=== PATIENT | male | born 1960 | race Caucasian/White ===

== ENCOUNTER 2016-05-13 08:15 | Emergency (ER) | payer OTHER ==
[~2016-05-13] VITALS: Ht 185.4 cm; Wt 98.0 kg
[2016-05-13 08:20] VITALS: TEMP 37.3; Ht 185.4 cm; Wt 98.0 kg
[2016-05-13] MEDS ORDERED: LOSA1TAB PO (08:34)
--- NOTE | 2016-05-13 08:57 | DIAGNOSTIC IMAGING REPORT ---
RIGHT ANKLE 3 VIEWS HISTORY: Right ankle pain. COMPARISON: None. FINDINGS: There is no fracture or dislocation. Diffuse soft tissue swelling. Plantar heel spur. No radiopaque foreign bodies. IMPRESSION: No fractures. Electronically signed by: Atul Rubio M.D. 05/13/2016 8:55 AM Dictated Date/Time: 05/13/2016 8:54 AM
[2016-05-13 09:16] VITALS: BP 153/89; PULSE 76; O2SAT 97
--- NOTE | 2016-05-14 10:19 | EMERGENCY ROOM VISIT NOTE ---
ED Visit Note First contact with patient: 08:21 CHIEF COMPLAINT: Right ankle pain. HISTORY OF PRESENT ILLNESS: Mr. Fuentes is a 56-year old white male who is brought via wheelchair into the ED complaining of right lateral ankle pain. He reports 4 days ago he rolled his ankle when he was carrying trash at work. He reports initially he had some mild pain but over the last 4 days it became severe and for the last 2 days she has been having difficulty walking and sleeping because of the pain He is currently complaining of constant throbbing pain over the lateral aspect of the right ankle around the malleolus. He rates the pain a 10/10. Pain is radiating to the lower portions of the distal fibula. Pain increases with ambulation, dorsiflexion, inversion and palpation. He has not identified any alleviating factors related to the pain. He has been using intermittent ibuprofen and ice without relief of his discomfort. Associated with the pain is mild paresthesias to the foot. REVIEW OF SYSTEMS: As noted above in History of Present Illness. PAST MEDICAL HISTORY: Hypertension, status post unspecified knee surgery. CURRENT MEDICATIONS: ALLERGIES TO MEDICATIONS: Patient denies. SOCIAL HISTORY: Patient is currently employed; he feels safe in his home environment; he denies tobacco and alcohol use. PHYSICAL EXAM: Vital Signs: Date Time Temp Pulse Resp B/P Pulse Ox O2 Delivery O2 Flow Rate FiO2 05/13/16 09:16 76 16 153/89 97 05/13/16 08:20 37.3 80 16 155/97 95 Room Air General: 56 year old male in mild/moderate distress due to pain, nontoxic- appearing, afebrile and hemodynamically stable. Neurological: Awake, alert, oriented to person place and time. Answering questions appropriately and following commands. Skin: Warm dry and pink. No soft tissue injury. Right Lower Extremity: No gross santiago deformities. No tenderness in the hip or knee. Tenderness over the ligamentous structures anterior, inferior and posterior to the lateral malleolus with moderate swelling but no bony deformity , bony crepitus or ecchymosis. Decreased range of motion and muscle strength in all movements due to pain when. Questionable laxity on inversion. No tenderness throughout the foot. Throughout the foot the skin is pink and warm with brisk capillary refill. Able to distinguish light sensations through all dermatomes of the foot. ED COURSE: Patient is assessed as noted above. Right Ankle X-Rays: Were read by myself and shows no acute fractures or dislocations. Moderate amount of swelling was noted. Patient is given ice for pain, swelling and comfort. Patient is placed in a gel splint and is instructed on crutch use. Patient is educated about his condition and instructed on his treatment plan; he verbalizes understanding and agreement with the our plan. CLINICAL IMPRESSION: Right ankle sprain. DISPOSITION: Patient is discharged to home in stable condition; prior to departure he was reassessed and subjectively reported he was feeling the same. PLAN: Comfort measures were discussed with the patient. Patient was encouraged to follow-up with an Workmen's Compensation if no better in 7-10 days for referral to orthopedics. Patient was encouraged to return ED for worsening/uncontrolled pain, uncontrolled swelling, worsening tingling or numbness or as needed.
== END 2016-05-13 09:18 | disposition home or self-care (01) ==
LOC: C.EDB 08:16
DX: S93.401A Sprain of unspecified ligament of right ankle, initial encounter (principal); X58.XXXA Exposure to other specified factors, initial encounter; Y99.0 Civilian activity done for income or pay; I10 Essential (primary) hypertension